=== PATIENT | female | born 1990 | race Caucasian/White ===

== ENCOUNTER 2019-01-05 12:04 | Emergency (ER) | payer BC ==
[2019-01-05 12:48] VITALS: BP 156/100
--- NOTE | 2019-01-05 13:19 | UC ---
Ear Complaint HPI - HPI Summary HPI Summary: 1 week progressive bilat ear pain R>L No drainage. PT has tried peroxide without improvement. states feels congested. mild sinus fullness. no fever, chills no rash no cp, sob, abd pain no n/v/d Pt not meds reviewed - History of Current Complaint Chief Complaint: UCEar Stated Complaint: BILAT EAR PAIN Time Seen by Provider: 01/05/19 13:03 Hx Obtained From: Patient Hx Last Menstrual Period: 12/30/18 Pain Intensity: 2 - Allergies/Home Medications Allergies/Adverse Reactions: Allergies Allergy/AdvReac Type Severity Reaction Status Date / Time No Known Drug Allergies Allergy See Comment Verified 01/05/19 12:38 Home Medications: Home Medications Aspirin/Acetaminophen/Caffeine [Excedrin Extra Strength Caplet] 1 tab PO Q6HR [History Confirmed 01/05/19] Fluoxetine HCl [Prozac] 40 mg PO DAILY 01/05/19 [History Confirmed 01/05/19] Lansoprazole [Prevacid] 40 mg PO DAILY 01/05/19 [History Confirmed 01/05/19] SUMAtriptan TAB* [Imitrex TAB*] 100 mg PO DAILY 01/05/19 [History Confirmed ] PMH/Surg Hx/FS Hx/Imm Hx Previously Healthy: Yes - Surgical History Surgical History: Yes Surgery Procedure, Year, and Place: wisdom teeth - Family History Known Family History: Positive: Non-Contributory - Social History Occupation: Employed Full-time Lives: With Family Alcohol Use: Occasionally Substance Use Type: None Smoking Status (MU): Never Smoked Tobacco Review of Systems All Other Systems Reviewed And Are Negative: Yes Constitutional: Positive: Fever Skin: Positive: Negative Eyes: Positive: Negative ENT: Positive: Sore Throat, Ear Ache, Sinus Congestion, Sinus Pain/Tenderness Respiratory: Positive: Negative Cardiovascular: Positive: Negative Physical Exam - Summary Physical Exam Summary: Vital Signs Reviewed: Yes A+Ox3, no distress Eyes: Conjunctiva Clear, ASHLY. EOM intact and full ENT: Hearing grossly normal right TM + fluid, erythema, buldge, left TM fluid - no erythema, turbinates inflammed and boggy, mild PND, mmoist, uvula midline, no exudate, no erythema Neck: Positive: Supple Respiratory: Positive: No respiratory distress, No accessory muscle use + CTA throughout no w/r Cardiovascular: RRR nl s1, s2 no m/r CBT <2 sec abd soft + BS nt/nd no guarding, no distension Musculoskeletal Exam: CISNEROS x 4 without difficulty Strength Intact, ROM Intact Neurological: Positive: Alert, + sensation throughout Psychological: Positive: Normal Response To manager it security Skin: Positive: no rash, no ecchymosis Triage Information Reviewed: Yes Vital Signs: Initial Vital Signs Temp 98.2 F 01/05/19 12:42 Pulse 88 01/05/19 12:42 Resp 18 01/05/19 12:42 BP 156/100 01/05/19 12:42 Pulse Ox 98 01/05/19 12:42 Ear Complaint Course/Dx - Course Course Of Treatment: Pt with ear pain, no drainage and congestion VSS - elevate BP Pt with right OM, left serous otitis turbiantes inflammed and boggy abx, flonase decongestate hydrate secretion precaution return precaution pt comfortable and in agreement with plan elevated BP recommedn pcp f.u recheck - Differential Dx/Diagnosis Provider Diagnosis: Serous otitis media Discharge ED - Sign-Out/Discharge Documenting (check all that apply): Patient Departure All imaging exams completed and their final reports reviewed: No Studies - Discharge Plan Condition: Stable Disposition: HOME Prescriptions: Cefdinir [Cefdinir 300 MG CAP] 300 mg PO BID #20 cap Patient Education Materials: Ear Infection (ED) Referrals: José Andrews MD [Primary Care Provider] - Additional Instructions: - Okay to alternate ibuprofen (Advil, Motrin) and Tylenol every 3 hours for pain. Take with food. Do NOT take for more than 4-5 days - Stay well hydrated - frequent sips of cold fluids will be soothing to your throat (popsicles, jello, ice cream, ice water). Avoid excess caffeine until your symptoms have resolved. - Do not share eating, drinking utensils. Throw out your toothbrush when your symptoms resolved -Throat infections are spread by oral secretions - do not share eating or drinking utensils until you symptoms are resolved. Clean items that may get your secretions such as cell phones, ipads, computer mouse, television remotes. After you have been on antibiotics for 2 days, change your toothbrush and your pillowscase - get plenty of restful sleep - Take over the counter decongestant and cough medication - Contact your doctor to arrange a follow-up appointment as needed - Billing Disposition and Condition Condition: STABLE Disposition: Home
== END 2019-01-05 13:38 | disposition home or self-care (01) ==
LOC: UCCORT 12:04
DX: H65.92 Unspecified nonsuppurative otitis media, left ear (principal); H66.91 Otitis media, unspecified, right ear; R03.0 Elevated blood-pressure reading, without diagnosis of hypertension
CPT/HCPCS: 99202; G0463